=== PATIENT | female | born 1930 | race Caucasian/White ===

== ENCOUNTER 2018-06-06 17:10 | Observation (INO) ==
[2018-06-06] MEDS ORDERED: Ipratropium/Albuterol Neb 3 ML IH ONE (17:44)
[2018-06-06] MEDS ORDERED: predniSONE 20 MG TABLET PO ONE (17:44)
--- NOTE | 2018-06-06 17:47 | Emergency Department Note ---
Disposition Clinical Impression: Elevated blood pressure reading, Elevated brain natriuretic peptide (BNP) level Chronic kidney disease Qualifiers: Chronic kidney disease stage: unspecified stage Qualified Code(s): N18.9 - Chronic kidney disease, unspecified Dyspnea Qualifiers: Dyspnea type: unspecified Qualified Code(s): R06.00 - Dyspnea, unspecified Disposition: Admitted As Inpatient Condition: Fair Time of Disposition: 19:46 SOB HPI - General Chief Complaint: ED Shortness of Breath/Dyspnea Stated Complaint: MORTEZA Time Seen by Provider: 06/06/18 17:22 Source: patient, family Mode of arrival: ambulatory Limitations: no limitations Nursing Notes Reviewed: Yes Vital Signs Reviewed: Yes - History of Present Illness 87 year old female with history of COPD presents for evaluation of shortness of breath. Patient states that she was seen her primary care doctor 5 days ago and was placed on amoxicillin as well as redness around. Patient also states she has been using her albuterol inhaler every 4 hours. Patient notes a nonproductive cough which occasionally produces some yellow sputum. Denies any fevers. Denies any chest pain. Denies any history of any oxygen requirement. Denies any nausea vomiting or abdominal pain. Denies history of CAD. States she does have a history of kidney disease but does follow with nephrology. Patient states she has been taking 20 mg of prednisone daily. Denies history of URI symptoms, nasal congestion or rhinorrhea. - Related Data Allergies Allergy/AdvReac Type Severity Reaction Status Date / Time levofloxacin [From Levaquin] Allergy Redness of Verified 06/06/18 17:44 Skin All systems ED: reviewed and negative except as stated. Constitutional: Denies: fever Cardiovascular: Denies: chest pain Respiratory: Reports: cough, dyspnea, sputum production Gastrointestinal: Denies: abdominal pain, nausea, vomiting Past Medical History - Past Medical History Source: patient Medical history: Reports: COPD, hyperlipidemia, hypertension, renal disease Psychiatric history: Reports: no psych history DOCTOR ASSISTANT history: Reports: no DOCTOR ASSISTANT history - Social History Smoking Status: Never smoker Smokeless Tobacco Status: No Alcohol use: Reports: none Drug use: Reports: none Physical Exam - General Limitations: no limitations General appearance: alert, in no apparent distress - Head Head exam: atraumatic, normocephalic, normal inspection - Eye Eye exam: Present: normal appearance, PERRL, EOMI - ENT ENT exam: normal exam, normal oropharynx, mucous membranes moist - Neck Neck exam: Present: normal inspection, trachea midline - Chest Chest inspection: Present: normal inspection, symmetric chest wall rise - Respiratory Respiratory exam: Present: normal lung sounds bilaterally, prolonged expiratory phase. Absent: respiratory distress - Cardiovascular Cardiovascular exam: Present: regular rate, normal rhythm. Absent: systolic murmur - Abdominal Exam Abdominal exam: Present: soft, Non-Tender - Extremities Exam Extremities exam: Present: normal inspection. Absent: pedal edema - Back Exam Back exam: Present: normal inspection - Neurological Exam Neurological exam: Present: alert, oriented X3, CN II-XII intact - Skin Skin exam: Present: warm, dry, intact, normal color Course Course Narrative: Patient seen and examined. Patient's in no acute distress. We will get EKG, basic labs chest x-ray nebs and steroids. Disposition pending. - Reevaluation(s) Reevaluation #1: Patient states she is feeling better. Awaiting labs. Time: 18:46 Reevaluation #2: Patient was able to ambulate without difficulty. Patient is ambulatory O2 was 93%. However, the patient labs show a mild elevation of BNP. Patient possibly is having early signs of heart failure. Patient states that she would like to be admitted. Time: 19:11 Vital Signs Temperature 97.7 F 06/06/18 17:15 Pulse Rate 70 06/06/18 17:15 Respiratory Rate 22 06/06/18 17:15 Blood Pressure 188/71 06/06/18 17:15 O2 Sat by Pulse Oximetry 95 06/06/18 17:15 Temperature 97.7 F 06/06/18 17:38 Pulse Rate 82 06/06/18 19:05 Respiratory Rate 18 06/06/18 18:06 Blood Pressure 185/83 06/06/18 17:38 O2 Sat by Pulse Oximetry 99 06/06/18 18:07 Oxygen Delivery Oxygen Delivery Room Air Shortness of Breath/Dyspnea - [facility] Narrative Medical decision making narrative: Patient presents for concerns of dyspnea. Initially the patient states she has a history of COPD and was treated with nebs and steroids and antibiotics proximally 5 days. Notes it dyspnea has not improved. Denies any fevers. Patient has had a productive intermittent sputum. Patient's workup in the ED shows an unremarkable chest x-ray. Patient's kidney function is at baseline. Patient does have some mild elevation of the BNP which is higher than what it has been in the past. Patient appeared to been optimized for COPD however is possibly early heart failure. Patient was able to ambulate without any difficulty but did drop her oxygen saturation. Patient signs symptoms are not consistent with a PE or dissection. Patient would best be evaluated with continued cardiopulmonary monitoring with an echo. To evaluate for any signs of heart failure. - Lab Data Lab results reviewed: Yes I reviewed the patient's lab results. Result diagrams: 06/06/18 18:05 06/06/18 18:05 Lab Results 06/06/18 06/06/18 06/06/18 Range/Units 18:05 18:05 18:05 WBC 12.8 H (4.3-11.1) K/mcL RBC 4.81 (3.82-4.97) M/mcL Hgb 12.8 (11.5-15.4) g/dL Hct 40.2 (35.3-44.9) % MCV 83.6 (83.0-100.0) fL MCH 26.6 L (28.0-33.3) pg MCHC 31.8 (31.6-35.5) g/dL RDW 14.1 (11.5-14.5) % Plt Count 181 (140-400) K/mcL MPV 12.1 (9.4-12.4) fL Immature Gran % 0.7 (0-4) % Seg Neutrophils % 61.9 % Lymphocytes % 23.8 % Monocytes % 11.7 % Eosinophils % 1.7 % Basophils % 0.2 % Neutrophils # 7.9 (1.6-8.9) K/mcL Lymphocytes # 3.0 (0.6-4.6) K/mcL Monocytes # 1.5 H (0.0-1.3) K/mcL Eosinophils # 0.2 (0.0-0.6) K/mcL Basophils # 0.0 (0.0-0.2) K/mcL Sodium 140 (136-145) mEq/L Potassium 3.7 (3.5-5.1) mEq/L Chloride 102 (98-107) mEq/L Carbon Dioxide 30 H (23-29) mEq/L BUN 23 (8-23) mg/dL Creatinine 1.46 H (0.60-1.20) mg/dL Est GFR ( Amer) 41 L (> 60) Est GFR (Non-Af Amer) 34 L (> 60) BUN/Creatinine Ratio 16 (6-26) Glucose 139 H (70-105) mg/dL Calculated Osmolality 296 (280-300) Calcium 9.1 (8.6-10.3) mg/dL Troponin I < 0.03 (< 0.04) ng/mL B-Natriuretic Peptide 100 H (Less than 100) pg/mL - Radiology Data Radiology results reviewed: Yes I reviewed the patient's radiology results. Chest X-Ray 06/06/18 17:44 IMPRESSION: Senescent pulmonary changes. No definite acute pulmonary disease. Calcific atherosclerotic disease aorta. D/ / Austin Vance / Austin Vance Interpreting Provider: Austin Vance - EKG Data EKG attestation: Yes I reviewed and interpreted this EKG. EKG shows normal: Reports: sinus rhythm Rate: Reports: normal Rhythm: Reports: NSR Fenton/QRS: Reports: left axis deviation T wave inversions noted in: Reports: aVR, v1 QRS morphology: Reports: poor R-wave progression Interpretation: Reports: no acute changes, unchanged when compared to prior tracing (date) S.B.AAubrey - S.[email or web address].AAubrey Situation: Demographics Background: Presenting Complaint Assessment: Vital Signs, Course and respsone to treatment, Patient/Family Expectation Recommendation: Barrier(s) to disposition, Recommendation based on pending studies, treatments, or consults S.B.A.RSeymour Report Given to: Dr. Toro SSeymourBSeymourAAubrey Repor Time: 19:53 Attestation Statement - Attestation Attestation: I examined this patient and my medical decision-making was reviewed with the Resident Physician. I agree with the documented findings, disposition and treatment plan as described except to the extent set forth below. Findings consistent with COPD versus CHF. She did receive bronchodilators, steroids, will be admitted for further management. BNP is slightly more elevated than baseline and this could be a contributing factor to her underlying respiratory status. The patient will be admitted for further management.
[2018-06-06 18:15] LABS: Basophils % 0.2 %; Eosinophils # 0.2 K/mcL (0.0-0.6); Eosinophils % 1.7 %; Hematocrit 40.2 % (35.3-44.9); Hemoglobin 12.8 g/dL (11.5-15.4); Immature Granulocytes % 0.7 % (0-4); Lymphocytes % 23.8 %; Mean Corpuscular HGB Conc 31.8 g/dL (31.6-35.5); Mean Corpuscular Hemoglobin 26.6 pg (28.0-33.3); Mean Corpuscular Volume 83.6 fL (83.0-100.0); Mean Platelet Volume 12.1 fL (9.4-12.4); Monocytes # 1.5 K/mcL (0.0-1.3); Monocytes % 11.7 %; Neutrophils # 7.9 K/mcL (1.6-8.9); Platelet Count 181 K/mcL (140-400); Red Blood Count 4.81 M/mcL (3.82-4.97); Red Cell Distribution Width 14.1 % (11.5-14.5); Segmented Neutrophils % 61.9 %
[2018-06-06 18:37] LABS: BUN/Creatinine Ratio 16 (6-26); Blood Urea Nitrogen 23 mg/dL (8-23); Calcium 9.1 mg/dL (8.6-10.3); Carbon Dioxide 30 mEq/L (23-29); Chloride 102 mEq/L (98-107); Glucose 139 mg/dL (70-105); Osmolality,Calculated 296 (280-300); Potassium 3.7 mEq/L (3.5-5.1); Sodium 140 mEq/L (136-145); Troponin I < 0.03 ng/mL (< 0.04); eGFR For Non-African Americans 34 (> 60)
[2018-06-06] MEDS ORDERED: Aspirin 325 MG TABLET PO ONE (19:34)
[2018-06-07] MEDS ORDERED: Albuterol 2.5 MG/3 ML NEBULIZER IH PRN (00:12)
[2018-06-07] MEDS: Ipratropium/Albuterol Neb 3 ML IH SCH ×6 (00:22→19:56)
[2018-06-07] MEDS: Furosemide 20 MG TABLET PO SCH ×2 (00:35→09:00)
[2018-06-07] MEDS ORDERED: Naloxone 0.4 MG/ML INJ IVP PRN (04:53)
[2018-06-07] MEDS ORDERED: Azithromycin 250 MG TABLET PO ONE (04:55)
--- NOTE | 2018-06-07 05:05 | Internal Med History&Physical ---
<Williams Mixon - Last Filed: 06/07/18 04:59> Date of Encounter: 06/07/18 Time of Encounter: 04:59 Internal Medicine - H&P: HPI Chief complaint: Cough Admitted From: Emergency Dept Plans for Post Hospital Care: Home History of present illness: Ms. Moreno is a 87 year old female with a past medical history of COPD, hyperlipidemia, hypertension, chronic kidney disease. She presented to the emergency department last night for 5 days of worsening cough and some associated shortness of breath. She states she normally has 1-2 COPD exacerbations a year that are controlled with a course of amoxicillin and prednisone from her PCP. She states she reported to her PCP on Friday and was given a course of amoxicillin and prednisone but her symptoms did not improve. She states her cough is mostly nonproductive although she has occasionally produce some yellow sputum. She denies fever or chills, cardiac chest pain. She does report pleuritic type chest pain. On presentation to the ED blood pressure is elevated with systolic into the 200s but vital signs are otherwise normal. Patient saturating in the 90s on room air. Labs significant for white count minimally elevated at 12.8, creatinine elevated at 1.46 which appears to be her baseline, bicarbonate elevated to 30, BNP elevated to 100. EKG revealed normal sinus rhythm with some T-wave inversions that are unchanged from previous EKGs. Chest x-ray revealed diffuse chronic parenchymal changes but no acute consolidation or evidence of pneumonia. Patient was given DuoNeb times, prednisone, Lasix in the emergency department. On my interview patient tells me she has had COPD since the late . She states that she never smoked but her family all did and the transmission mechanic who diagnosed her with COPD stated it was likely due to secondhand smoke exposure. She denies exposure to anything in the workplace or home other than secondhand smoke. Family history is significant for emphysema in her father but no other family members had lung disease. Social history negative for smoking, alcohol, drugs. Past Med Surg Social Fam HX - Past Medical History Medical history: COPD, hyperlipidemia, hypertension, renal disease Psychiatric history: no psych history - Past Surgical History Surgical History: cholecystectomy - Social History Smoking Status: Never smoker Smokeless Tobacco Status: No Alcohol use: none Drug use: none - Family History Father Hx Family Respiratory Disorders: Yes (COPD) Internal Medicine - H&P: Meds Aspirin 81 mg PO DAILY 10/20/18 [History] Atenolol [Tenormin] 50 mg PO DAILY 06/06/18 [History] Fluticasone/Salmeterol [Advair 500-50 Diskus] 1 each IH BID 06/06/18 [History] Furosemide [Lasix] 20 mg PO DAILY 06/06/18 [History] Losartan Potassium [Cozaar] 100 mg PO DAILY 06/06/18 [History] Simvastatin [Zocor] 40 mg PO DAILY 06/06/18 [History] amLODIPine [Norvasc] 2.5 mg PO DAILY 06/06/18 [History] Allergy/AdvReac Type Severity Reaction Status Date / Time levofloxacin [From [facility]] Allergy Redness of Verified 06/06/18 17:44 Skin All Systems PM: A 10-system review of systems was performed and is negative for pertinent findings except as documented above in the HPI. - Constitutional Vitals: Temp Pulse Resp BP Pulse Ox 97.9 F 73 16 176/81 94 06/07/18 03:00 06/07/18 03:00 06/07/18 03:00 06/07/18 03:00 06/07/18 03:00 Exam: Patient in no acute distress Alert and oriented 3 Affect normal Cranial nerves II through XII intact Pupils equal and reactive to light Neck supple with minor submandibular lymphadenopathy present, no JVD Heart in regular rate and rhythm without murmur or gallop present Lungs exhibited diffuse scattered rhonchi more consolidated on the right and some minor crackles in the right lower lobe Lung exam negative for wheezing, accessory muscle use, regions of absent breath sounds Abdomen soft and nontender with normal bowel sounds present Bilateral lower extremities negative for edema Skin warm and dry Internal Med - H&P Results - Labs CBC & Chem 7: 06/06/18 18:05 06/06/18 18:05 Labs: Short CBC 06/06/18 Range/Units 18:05 WBC 12.8 H (4.3-11.1) K/mcL Hgb 12.8 (11.5-15.4) g/dL Hct 40.2 (35.3-44.9) % Plt Count 181 (140-400) K/mcL Neutrophils # 7.9 (1.6-8.9) K/mcL BMP 06/06/18 18:05 Sodium 140 Potassium 3.7 Chloride 102 Carbon Dioxide 30 H BUN 23 Creatinine 1.46 H Glucose 139 H Calcium 9.1 Cardiac Enzymes 06/06/18 Range/Units 18:05 Troponin I < 0.03 (< 0.04) ng/mL - Impressions ITS Impressions Chest X-Ray 06/06/18 17:44 IMPRESSION: Senescent pulmonary changes. No definite acute pulmonary disease. Calcific atherosclerotic disease aorta. D/ / Austin Vance / Austin Vance Interpreting Provider: Austin Vance - Assessment and plan (1) Bronchitis Current Visit: Yes Status: Acute Assessment and plan: Patient presented with the chief complaint of persistent cough with associated pleuritic pain and minimal shortness of breath Patient states she has a history of COPD exacerbations and acute bronchitis, she states this feels more like bronchitis She states her main complaint is cough without expectoration and pleuritic chest pain as opposed to shortness of breath She was trialed on an outpatient regimen of amoxicillin and prednisone for 5 days White count minimally elevated at 12.8 - labs, vitals, and clinical disposition do not otherwise indicate sepsis Labs significant for mildly elevated BNP of 100, oxygen saturation in the mid 90s on room air Chest x-ray negative for acute process or consolidation indicative of pneumonia Physical exam significant for appreciable rhonchi and minimal crackles, no wheeze Differential includes bronchitis, COPD exacerbation, new onset heart failure This is most likely acute bronchitis secondary to viral or atypical bacterial etiology COPD exacerbation less likely due to no wheeze, nonresponsive to steroids, no hypoxia Heart failure less likely due to minimal BNP, no JVD, no swelling, no orthopnea, no gallop, no significant chest x-ray findings Plan Continuous pulse oximetry Scheduled DuoNeb's and albuterol nebs as needed Azithromycin by mouth 500 mg loading dose followed by 250 mg daily Robitussin-DM for cough control and expectoration assistance Echocardiogram in the morning to rule out heart failure etiology We will hold steroids for now as COPD exacerbation is less likely and patient was unresponsive to steroids previously (2) COPD (chronic obstructive pulmonary disease) Current Visit: No Status: Chronic Assessment and plan: As seen above Qualifiers: COPD type: unspecified COPD Qualified Code(s): J44.9 - Chronic obstructive pulmonary disease, unspecified (3) Hypertension Current Visit: Yes Status: Chronic Assessment and plan: Patient presented with elevated blood pressure, systolic in the 200s Blood pressure currently in the 170s systolic, patient stable She states her blood pressure will normally be around 120/80 We will resume home blood pressure medications with hydralazine as needed Qualifiers: Hypertension type: unspecified Qualified Code(s): I10 - Essential (primary) hypertension (4) Chronic kidney disease Current Visit: No Status: Chronic Assessment and plan: Patient has history of chronic kidney disease She follows with nephrology who recommended hydration Creatinine at admission 1.46 which appears to be her baseline according to previous values We will continue to monitor and attempt to avoid nephrotoxins and renally dose medications Qualifiers: Chronic kidney disease stage: unspecified stage Qualified Code(s): N18.9 - Chronic kidney disease, unspecified (5) Hyperlipidemia Current Visit: No Status: Chronic Assessment and plan: Continue home simvastatin Qualifiers: Hyperlipidemia type: unspecified Qualified Code(s): E78.5 - Hyperlipidemia, unspecified (6) DVT prophylaxis Current Visit: Yes Status: Acute Assessment and plan: Patient instructed to ambulate 3 times a day for DVT prophylaxis This will also aid in assisting sputum expectoration - Time Spent With Patient Total time spent is greater than 50% in coordination of care (as documented) at patient's floor/unit and/or counseling patient: <Agusto Toro - Last Filed: 06/07/18 06:44> Time of Encounter: 05:15 - Constitutional Constitutional: no chills, no fever(s) - EENT Eyes: no blurry vision, no change in vision Ears: no ear pain Nose, mouth and throat: nasal congestion, nasal discharge, no sore throat - Cardiovascular Cardiovascular ROS IM: dyspnea, no chest pain, no orthopnea, no syncope - Respiratory Respiratory: cough, dyspnea, wheezing, chest congestion, change in phlegm color, no hemoptysis - Gastrointestinal Gastrointestinal: no abdominal pain, no diarrhea, no hematemesis, no hematochezia, no melena, no nausea, no vomiting - Genitourinary Genitourinary: no dysuria, no flank pain, no hematuria - Musculoskeletal Musculoskeletal ROS IM: no arthralgias, no back pain - Integumentary Integumentary IM: no rash, no jaundice - Neurological Neurological ROS: no dizziness, no focal weakness, no frequent falls, no headache(s) - Psychiatric Psychiatric: no anxiety, no depression - Endocrine Endocrine IM: no polydipsia, no polyuria - Allergic/Immunologic Allergic/Immunologic: no GI upset with certain foods - Constitutional Vitals: Temp Pulse Resp BP Pulse Ox 97.9 F 73 16 176/81 94 06/07/18 03:00 06/07/18 03:00 06/07/18 03:00 06/07/18 03:00 06/07/18 03:00 General appearance: Present: cooperative, A&O X 3, pleasant, no acute distress - Eye Eye exam: Present: PERRL. Absent: scleral icterus - Neck Neck exam general surgery: Present: supple - Respiratory Respiratory exam: Present: rhonchi. Absent: chest wall tenderness, prolonged expiratory phase, rales, respiratory distress, wheezes Additional comments: + cough paroxysms - Cardiovascular Cardiovascular exam: Present: RRR, +S1, +S2. Absent: diastolic murmur, systolic murmur - GI/Abdominal GI/Abdominal exam: Present: normal bowel sounds, soft. Absent: hepatomegaly, mass, splenomegaly, tenderness - Extremities Exam Extremities exam: Present: warm, radial pulses palpable and symmetrical. Absent: calf tenderness, mottling, pedal edema - Back Exam Back exam: Absent: CVA tenderness (L), CVA tenderness (R) - Neurological Exam Neurological exam: Present: alert, CN II-XII intact, oriented X3, no focal deficits - Skin Skin exam: Present: dry, warm Internal Med - H&P Results - Labs CBC & Chem 7: 06/06/18 18:05 06/06/18 18:05 Labs: Short CBC 06/06/18 Range/Units 18:05 WBC 12.8 H (4.3-11.1) K/mcL Hgb 12.8 (11.5-15.4) g/dL Hct 40.2 (35.3-44.9) % Plt Count 181 (140-400) K/mcL Neutrophils # 7.9 (1.6-8.9) K/mcL BMP 06/06/18 18:05 Sodium 140 Potassium 3.7 Chloride 102 Carbon Dioxide 30 H BUN 23 Creatinine 1.46 H Glucose 139 H Calcium 9.1 Cardiac Enzymes 06/06/18 Range/Units 18:05 Troponin I < 0.03 (< 0.04) ng/mL - Impressions ITS Impressions Chest X-Ray 06/06/18 17:44 IMPRESSION: Senescent pulmonary changes. No definite acute pulmonary disease. Calcific atherosclerotic disease aorta. D/ / Austin Vance / Austin Vance Interpreting Provider: Austin Vance - Assessment and plan (1) Chronic kidney disease Current Visit: No Status: Chronic Qualifiers: Chronic kidney disease stage: unspecified stage Qualified Code(s): N18.9 - Chronic kidney disease, unspecified (2) Bronchitis Current Visit: Yes Status: Acute (3) Hypertension Current Visit: Yes Status: Chronic Qualifiers: Hypertension type: unspecified Qualified Code(s): I10 - Essential (primary) hypertension (4) COPD (chronic obstructive pulmonary disease) Current Visit: No Status: Chronic Qualifiers: COPD type: unspecified COPD Qualified Code(s): J44.9 - Chronic obstructive pulmonary disease, unspecified (5) Hyperlipidemia Current Visit: No Status: Chronic Qualifiers: Hyperlipidemia type: unspecified Qualified Code(s): E78.5 - Hyperlipidemia, unspecified (6) DVT prophylaxis Current Visit: Yes Status: Acute - Time Spent With Patient Total time spent is greater than 50% in coordination of care (as documented) at patient's floor/unit and/or counseling patient: - Attending Attestation I discussed the patient [place], past medical history, review of systems, lab data, and exam findings with Dr. Mixon. I then saw and examined patient independently. She is on room air, afebrile, and in no distress. She feels much better than her initial presentation. She reiterates that she failed outpatient treatment. She is not wheezing whatsoever on exam. She does have a frequent cough with some paroxysms of coughing. She has minimal productive sputum. She denies any fevers or chills. Based upon her history and exam, I agree she likely has bronchitis and that it is most likely viral. However, for the remote possibility of bacterial infection, we will place her on Zithromax for better atypical coverage. She has been on amoxicillin without relief. I do not feel she needs steroids at this time as she has no wheezing whatsoever. We will treat her with aerosols and antibiotics as above. I anticipate she will be discharged soon with close follow-up. Other than my comments above and noted exam findings, I agree with Dr. Mixon's assessment and plan.
[2018-06-07] MEDS: Acetaminophen 325 MG TABLET PO PRN ×2 (05:13→20:40)
[2018-06-07 08:07] LABS: Basophils % 0.2 %; Hematocrit 41.5 % (35.3-44.9); Hemoglobin 13.7 g/dL (11.5-15.4); Lymphocytes # 1.1 K/mcL (0.6-4.6); Lymphocytes % 12.4 %; Mean Corpuscular Hemoglobin 27.1 pg (28.0-33.3); Mean Platelet Volume 12.6 fL (9.4-12.4); Monocytes # 0.5 K/mcL (0.0-1.3); Neutrophils # 7.3 K/mcL (1.6-8.9); Platelet Count 194 K/mcL (140-400); Red Blood Count 5.06 M/mcL (3.82-4.97); Red Cell Distribution Width 14.3 % (11.5-14.5); Segmented Neutrophils % 81.4 %
[2018-06-07 08:40] LABS: Calcium 9.3 mg/dL (8.6-10.3); Potassium 3.9 mEq/L (3.5-5.1)
--- NOTE | 2018-06-07 08:56 | Internal Med Progress Note ---
Hospitalist Progress Note - Encounter Date of Encounter: 06/07/18 Time of Encounter: 08:53 - Subjective Interval History: No acute changes overnight, in no distress at this time. Continued to report some mild exertional dyspnea as well as cough. - Exam Vitals: Temp Pulse Resp BP Pulse Ox 97.8 F 78 16 162/74 96 06/07/18 07:18 06/07/18 07:18 06/07/18 07:46 06/07/18 07:18 06/07/18 07:46 Exam: PHYSICAL EXAMINATION: GENERAL: The patient is an elderly female in no apparent distress, she is alert and oriented x3. HEENT: Head is normocephalic and atraumatic. Extraocular muscles are intact. Pupils are equal, round, and reactive to light and accommodation. Nares appeared normal. Mouth is well hydrated and without lesions. Mucous membranes are moist. Posterior pharynx clear of any exudate or lesions. NECK: Supple. No carotid bruits. No lymphadenopathy or thyromegaly. LUNGS: Left lower lobe diminished, LML, NU clear/diminished, A&P, right lung clear/diminished A&P. No accessory muscle usage or prolonged expiratory phase noted HEART: Regular rate and rhythm, S1, S2 without murmur. ABDOMEN: Soft, nontender, and nondistended. Positive bowel sounds. No hepatosplenomegaly was noted. EXTREMITIES: Without any cyanosis, clubbing, rash, lesions or edema. NEUROLOGIC: Cranial nerves II through XII are grossly intact. - Assessment and Plan (1) Bronchitis Current Visit: Yes Status: Acute Assessment and Plan: Presented with mild shortness of breath, productive cough and pleuritic chest pain with inspiration Recently treated for bronchitis by PCP with Augmentin and steroids Has a history of COPD; does not appear to be COPD exacerbation without shortness of breath or wheezing, nonresponsive to steroids, without hypoxia; holding steroids for now Symptoms ongoing greater than 5 days, consider bronchitis viral versus bacterial BNP minimal, no JVD, no swelling, no orthopnea, CXR findings without acute pulmonary process, does not appear to be heart failure Continue aerosols as needed Continue azithromycin Symptomatically management with Robitussin-DM Incentive spirometry Ambulate frequently Continuous pulse ox TTE pending (2) Chronic kidney disease Current Visit: No Status: Chronic Assessment and Plan: CKD III Follows with [facility] Serum creatinine and GFR around patient's baseline Continue to closely monitor Avoid nephrotoxins (3) Hypertension Current Visit: Yes Status: Chronic Assessment and Plan: History of hypertension, the patient's blood pressure this morning is 162/74 Continue anti-HTN medications, continue as needed hydralazine IV If hypertension persists consider increasing Norvasc to 5 mg by mouth daily Patient states her normal BP is around 120/80 (4) COPD (chronic obstructive pulmonary disease) Current Visit: No Status: Chronic Assessment and Plan: As above (5) Hyperlipidemia Current Visit: No Status: Chronic Assessment and Plan: History of hyperlipidemia Continue simvastatin (6) DVT prophylaxis Current Visit: Yes Status: Acute Assessment and Plan: SC heparin and frequent ambulation - Time Spent with Patient Total time spent is greater than 50% in coordination of care (as documented) at patient's floor/unit and/or counseling patient: less than 15 minutes Plan of Care Discussed with: patient Internal Medicine: Result - Labs CBC & Chem 7: 06/07/18 05:55 06/07/18 05:55 Labs: Short CBC 06/06/18 06/07/18 Range/Units 18:05 05:55 WBC 12.8 H 9.0 (4.3-11.1) K/mcL Hgb 12.8 13.7 (11.5-15.4) g/dL Hct 40.2 41.5 (35.3-44.9) % Plt Count 181 194 (140-400) K/mcL Neutrophils # 7.9 7.3 (1.6-8.9) K/mcL BMP 06/06/18 06/07/18 18:05 05:55 Sodium 140 137 Potassium 3.7 3.9 Chloride 102 100 Carbon Dioxide 30 H 26 BUN 23 23 Creatinine 1.46 H 1.27 H Glucose 139 H 204 H Calcium 9.1 9.3 Cardiac Enzymes 06/06/18 Range/Units 18:05 Troponin I < 0.03 (< 0.04) ng/mL - Impressions Impressions Chest X-Ray 06/06/18 17:44 IMPRESSION: Senescent pulmonary changes. No definite acute pulmonary disease. Calcific atherosclerotic disease aorta. D/ / Austin Vance / Austin Vance Interpreting Provider: Austin Vance Consult Discharge Plan - Plan Referrals: Melany Shafer, BRICK [facility]OL[facility] [Primary Care Provider] - (2) Chronic kidney disease Qualifiers: Chronic kidney disease stage: unspecified stage Qualified Code(s): N18.9 - Chronic kidney disease, unspecified (3) Hypertension Qualifiers: Hypertension type: unspecified Qualified Code(s): I10 - Essential (primary) hypertension (4) COPD (chronic obstructive pulmonary disease) Qualifiers: COPD type: unspecified COPD Qualified Code(s): J44.9 - Chronic obstructive pulmonary disease, unspecified (5) Hyperlipidemia Qualifiers: Hyperlipidemia type: unspecified Qualified Code(s): E78.5 - Hyperlipidemia, unspecified
[2018-06-07] MEDS: amLODIPine 5 MG TABLET PO SCH (09:00)
[2018-06-07] MEDS: Aspirin 81 MG TAB.CHEW PO SCH (09:01)
[2018-06-07] MEDS: *HR* Heparin 5,000 UNIT/ML VIAL SQ SCH (18:04)
[2018-06-08] MEDS: Ipratropium/Albuterol Neb 3 ML IH SCH ×7 (00:32→23:36)
[2018-06-08] MEDS: *HR* Heparin 5,000 UNIT/ML VIAL SQ SCH ×2 (05:57→17:28)
[2018-06-08] MEDS: amLODIPine 5 MG TABLET PO SCH (08:10)
[2018-06-08] MEDS: Azithromycin 250 MG TABLET PO SCH (08:11)
[2018-06-08] MEDS: Furosemide 20 MG TABLET PO SCH (08:11)
[2018-06-08] MEDS: Aspirin 81 MG TAB.CHEW PO SCH (08:11)
--- NOTE | 2018-06-08 09:47 | Internal Med Progress Note ---
Hospitalist Progress Note - Encounter Date of Encounter: 06/08/18 Time of Encounter: 09:43 - Subjective Interval History: Patient reporting worsening dyspnea and increased cough overnight. Reporting excess fatigue as well as weakness and shortness of breath with activity - Exam Vitals: Temp Pulse Resp BP Pulse Ox 98.0 F 86 19 172/80 99 06/08/18 07:11 06/08/18 07:11 06/08/18 07:31 06/08/18 07:11 06/08/18 07:31 Exam: PHYSICAL EXAMINATION: GENERAL: The patient is an elderly female in no apparent distress, she is alert and oriented x3. HEENT: Head is normocephalic and atraumatic. Extraocular muscles are intact. Pupils are equal, round, and reactive to light and accommodation. Nares appeared normal. Mouth is well hydrated and without lesions. Mucous membranes are moist. Posterior pharynx clear of any exudate or lesions. NECK: Supple. No carotid bruits. No lymphadenopathy or thyromegaly. LUNGS: Left lower lobe diminished, LML, NU I/E wheezes A&P, right lung I/E wheezes A&P. Prolonged expiratory phase, mild conversational dyspnea HEART: Regular rate and rhythm, S1, S2 without murmur. ABDOMEN: Soft, nontender, and nondistended. Positive bowel sounds. No hepatosplenomegaly was noted. EXTREMITIES: Without any cyanosis, clubbing, rash, lesions or edema. NEUROLOGIC: Cranial nerves II through XII are grossly intact. - Assessment and Plan (1) Bronchitis Current Visit: Yes Status: Acute Assessment and Plan: Presented with mild shortness of breath, productive cough and pleuritic chest pain with inspiration Recently treated for bronchitis by PCP with Augmentin and steroids Has a history of COPD; does not appear to be COPD exacerbation without shortness of breath or wheezing, nonresponsive to steroids, without hypoxia; holding st eroids for now Symptoms ongoing greater than 5 days, consider bronchitis viral versus bacterial BNP minimal, no JVD, no swelling, no orthopnea, CXR findings without acute pulmonary process, does not appear to be heart failure Continue aerosols as needed Continue azithromycin Incentive spirometry Ambulate frequently Continuous pulse ox TTE pending 06/08--clinical picture worsening overnight, patient reporting shortness of breath, dyspnea with exertion and continued coarse cough. Yesterday lungs were clear/diminished bilaterally with diminished left lower lobe. However, today she has coarse I/E wheezing and is now 2 LNC respiratory support. We will start the patient on Tessalon Perles for cough, IV steroids and check strep pneumo/Legionella urine antigens as well as obtain flu swab. Otherwise continue all other orders as stated above (2) Chronic kidney disease Current Visit: No Status: Chronic Assessment and Plan: CKD III Follows with [facility] Serum creatinine and GFR around patient's baseline Continue to closely monitor Avoid nephrotoxins (3) Hypertension Current Visit: Yes Status: Chronic Assessment and Plan: History of hypertension Hypertensive episodes this morning Consider increasing Norvasc if HTN persists Continue anti-HTN medications, continue as needed hydralazine IV Patient states her normal BP is around 120/80 (4) COPD (chronic obstructive pulmonary disease) Current Visit: No Status: Chronic Assessment and Plan: Respiratory status declined overnight with exertional dyspnea, cough and shortness of breath Dyspneic on 2 L nasal cannula, does not have chronic respiratory failure and does not wear oxygen at home Appears to have an acute exacerbation of COPD in the setting of bronchitis, viral versus bacterial Add IV steroids to patient's medication regimen Continue azithromycin for anti-inflammatory properties Continue aerosols Respiratory support O2 PRN maintain SPO2 > 92% Monitor continuously on pulse ox (5) Hyperlipidemia Current Visit: No Status: Chronic Assessment and Plan: History of hyperlipidemia Continue simvastatin (6) DVT prophylaxis Current Visit: Yes Status: Acute Assessment and Plan: SC heparin and frequent ambulation - Time Spent with Patient Total time spent is greater than 50% in coordination of care (as documented) at patient's floor/unit and/or counseling patient: Internal Medicine: Result - Labs CBC & Chem 7: 06/07/18 05:55 06/07/18 05:55 - Impressions Impressions Echocardiogram 06/07/18 05:22 Impressions: LVEF 60-65%. Mild left ventricular diastolic dysfunction. Normal right ventricular structure and function. Mild-moderate aortic regurgitation. Mild mitral regurgitation. Mild tricuspid regurgitation. Consult Discharge Plan - Plan Referrals: Melany Shafer, DE[facility] [Primary Care Provider] - (2) Chronic kidney disease Qualifiers: Chronic kidney disease stage: unspecified stage Qualified Code(s): N18.9 - Chronic kidney disease, unspecified (3) Hypertension Qualifiers: Hypertension type: unspecified Qualified Code(s): I10 - Essential (primary) hypertension (4) COPD (chronic obstructive pulmonary disease) Qualifiers: COPD type: unspecified COPD Qualified Code(s): J44.9 - Chronic obstructive pulmonary disease, unspecified (5) Hyperlipidemia Qualifiers: Hyperlipidemia type: unspecified Qualified Code(s): E78.5 - Hyperlipidemia, unspecified
[2018-06-08] MEDS: Benzonatate 100 MG CAPSULE PO PRN ×2 (11:45→21:21)
[2018-06-08] MEDS: MethylPREDNISolone 40 MG/ML VIAL IVP SCH (17:28)
[2018-06-09] MEDS: Ipratropium/Albuterol Neb 3 ML IH SCH ×3 (03:43→11:38)
[2018-06-09 05:16] LABS: Basophils % 0.2 %; Hematocrit 44.4 % (35.3-44.9); Hemoglobin 14.1 g/dL (11.5-15.4); Immature Granulocytes % 1.1 % (0-4); Lymphocytes # 1.1 K/mcL (0.6-4.6); Mean Corpuscular HGB Conc 31.8 g/dL (31.6-35.5); Mean Corpuscular Hemoglobin 26.3 pg (28.0-33.3); Mean Corpuscular Volume 82.8 fL (83.0-100.0); Mean Platelet Volume 12.6 fL (9.4-12.4); Monocytes # 0.4 K/mcL (0.0-1.3); Monocytes % 3.8 %; Neutrophils # 9.7 K/mcL (1.6-8.9); Platelet Count 229 K/mcL (140-400); Red Blood Count 5.36 M/mcL (3.82-4.97); Red Cell Distribution Width 14.6 % (11.5-14.5); Segmented Neutrophils % 84.9 %
[2018-06-09] MEDS: MethylPREDNISolone 40 MG/ML VIAL IVP SCH (05:17)
[2018-06-09] MEDS: *HR* Heparin 5,000 UNIT/ML VIAL SQ SCH (05:17)
[2018-06-09] MEDS: Benzonatate 100 MG CAPSULE PO PRN (05:27)
[2018-06-09 05:31] LABS: Calcium 9.6 mg/dL (8.6-10.3); Potassium 4.2 mEq/L (3.5-5.1)
[2018-06-09] MEDS: Furosemide 20 MG TABLET PO SCH (07:46)
[2018-06-09] MEDS: Aspirin 81 MG TAB.CHEW PO SCH (07:46)
[2018-06-09] MEDS: Azithromycin 250 MG TABLET PO SCH (07:46)
[2018-06-09] MEDS: amLODIPine 5 MG TABLET PO SCH (07:47)
[2018-06-09 10:49] VITALS: BP 138/70
--- NOTE | 2018-06-09 13:12 | Discharge Summary ---
- NOTES TO OUTPATIENT PROVIDER Notes to Outpatient Provider: Cont wit Z pack, steroid taper Orders not resulted at time of discharge: Pending orders 06/10/18 04:00 Basic Metabolic Panel AM 0400 Complete Blood Count [HEME] AM 0400 06/11/18 04:00 Basic Metabolic Panel AM 0400 Complete Blood Count [HEME] AM 0400 Date of Encounter: 06/09/18 Time of Encounter: 13:09 - Discharge Diagnosis (1) Chronic kidney disease Priority: Primary Status: Chronic Qualifiers: Chronic kidney disease stage: unspecified stage Qualified Code(s): N18.9 - Chronic kidney disease, unspecified (2) Bronchitis Priority: Secondary Status: Acute (3) Hypertension Priority: Secondary Status: Chronic Qualifiers: Hypertension type: unspecified Qualified Code(s): I10 - Essential (primary) hypertension (4) COPD (chronic obstructive pulmonary disease) Priority: Secondary Status: Chronic Qualifiers: COPD type: unspecified COPD Qualified Code(s): J44.9 - Chronic obstructive pulmonary disease, unspecified (5) Hyperlipidemia Priority: Secondary Status: Chronic Qualifiers: Hyperlipidemia type: unspecified Qualified Code(s): E78.5 - Hyperlipidemia, unspecified Hospital course: Ms. Moreno is a 87 year old female past medical history of COPD hyperlipidemia hypertension chronic kidney disease. She presented MRSA primary after experiencing Prevacid 5 days of worsening cough and associated symptom of shortness of breath. She had been seen earlier this week by her PCP and was given a course of amoxicillin and prednisone how her symptoms did not improve. On presentation in the ER her oxygen saturation was 90 on room air she was given 2 L of oxygen which did improve. Labs are significant for white count minimally elevated at 12.8 and creatinine was elevated but appears to be around her baseline EKG was sinus rhythm unchanged from previous EKG chest x-ray with diffuse chronic parenchymal changes but no acute consolidation or evidence of pneumonia. She was given DuoNeb times prednisone Lasix in the emergency room. She was placed on azithromycin as well as steroids respiratory status improved and patient has been ambulating without any difficulty. She did complete 6 minute walk test but she did not qualify for any oxygen. Currently she is on room air satting approximately 94%. Cough has improved patient states that she feels well and she is ready for discharge. Advised patient to follow-up with primary care provider since this provider Chioma Frazier and can adjust medications accordingly. Patient will be discharged home with azithromycin as well as a steroid taper. Patient verbalizes understanding is ready for discharge - Time Spent with Patient Total time spent providing and/or coordinating discharge services: - Discharge Medications Prescriptions: Albuterol Neb [Proventil Neb] 2.5 mg IH Q4HR #30 inhsol Azithromycin [Zithromax] 250 mg PO DAILY #2 tablet Benzonatate [Tessalon] 100 mg PO TID PRN #15 capsule PRN Reason: Cough predniSONE [PredniSONE] 10 mg PO DAILY #20 tablet Home Medications: Aspirin 81 mg PO DAILY 06/06/18 [History] Atenolol [Tenormin] 50 mg PO DAILY 06/06/18 [History] Fluticasone/Salmeterol [Advair 500-50 Diskus] 1 puff IH BID 06/06/18 [History] Furosemide [Lasix] 20 mg PO DAILY 06/06/18 [History] Losartan Potassium [Cozaar] 100 mg PO DAILY 06/06/18 [History] Simvastatin [Zocor] 40 mg PO HS 06/06/18 [History] Amlodipine Besylate 2.5 mg PO HS 06/07/18 [History] Multivitamin [One Daily Multivitamin] 1 each PO DAILY 06/08/18 [History] Albuterol Neb [Proventil Neb] 2.5 mg IH Q4HR #30 inhsol 06/09/18 [Rx] Azithromycin [Zithromax] 250 mg PO DAILY #2 tablet 06/09/18 [Rx] Benzonatate [Tessalon] 100 mg PO TID PRN #15 capsule 06/09/18 [Rx] predniSONE [PredniSONE] 10 mg PO DAILY #20 tablet 06/09/18 [Rx] Allergies/Adverse Reactions: Allergy/AdvReac Type Severity Reaction Status Date / Time levofloxacin [From Levaquin] Allergy Redness of Verified 06/08/18 09:49 Skin Date of admission: 06/06/18 20:07 Primary care physician: Melany Shafer CNP Discharging clinician: Lizabeth Neville Anticipated date of discharge: 06/09/18 - Constitutional Vitals: Temp Pulse Resp BP Pulse Ox 97.7 F 90 18 138/70 94 06/09/18 10:39 06/09/18 10:39 06/09/18 10:39 06/09/18 10:39 06/09/18 11:05 General appearance: Present: cooperative, A&O X 3, pleasant, no acute distress Exam: see below - Head Head exam: Present: atraumatic, normocephalic - Eye Eye exam: Present: PERRL, conjuntiva pink, sclera anicteric Pupils: Present: PERRL - Neck Neck exam general surgery: Present: supple, trachea midline. Absent: lymph adenopathy - Respiratory Respiratory exam: Present: CTAB. Absent: accessory muscle use, rales, rhonchi, wheezes - Cardiovascular Cardiovascular exam: Present: RRR, +S1, +S2. Absent: diastolic murmur, gallop, rubs, systolic murmur - GI/Abdominal GI/Abdominal exam: Present: normal bowel sounds, soft, no peritoneal signs. Absent: distended, tenderness - Extremities Exam Extremities exam: Present: warm, radial pulses palpable and symmetrical. Absent: calf tenderness, cyanotic, pedal edema - Neurological Exam Neurological exam: Present: CN II-XII intact, oriented X3, no focal deficits. Absent: pronater drift, facial droop, speech deficit - Skin Skin exam: Present: dry, intact - Patient Status Disposition: Home, Self-Care Condition: Fair Functional capacity at discharge: independent ambulation Overall status at discharge: patient is back to baseline - Discharge Instructions Follow Up With: Melany Shafer CNP [Primary Care Provider] - 06/17/18 1:00 pm - Diet and Activity Activity: increase activity as tolerated Diet: advance to your usual diet
--- NOTE | 2018-06-10 22:07 | Electrocardiograph Report ---
[address] [address] Test Date: 2018-06-06 Pat Name: Liana Moreno Department: [id number] Room: 3B Gender: F Lodging House Keeper: : [id number] Requested By: Myron Gonzalez Order Number: [id number] Reading MD: Anastasia Escobar Measurements Intervals [place] Rate: 63 P: 57 KS: 147 QRS: -44 QRSD: 93 T: 64 QT: 405 QTc: 415 Interpretive Statements Sinus rhythm Left axis deviation Electronically Signed On 06-10-2018 22:05:54 EDT by Anastasia Escobar
== END 2018-06-09 14:35 | disposition home or self-care (01) ==
LOC: 3BNU 17:10 → EMEROOARM 17:10 → 3BNU 20:21
PROVIDERS: ADMIT Pediatrics; ATTEND Pediatrics

== ENCOUNTER 2020-11-20 21:36 | Observation (INO) ==
[2020-11-20] MEDS ORDERED: Ipratropium/Albuterol Neb 3 ML IH ONE (22:41)
[2020-11-20 23:32] LABS: Basophils # 0.1 K/mcL (0.0-0.2); Basophils % 0.6 %; Eosinophils # 1.7 K/mcL (0.0-0.6); Eosinophils % 11.3 %; Hematocrit 42.3 % (35.3-44.9); Immature Granulocytes % 0.2 % (0-4); Lymphocytes # 2.3 K/mcL (0.6-4.6); Lymphocytes % 15.2 %; Mean Corpuscular HGB Conc 30.7 g/dL (31.6-35.5); Mean Corpuscular Hemoglobin 26.5 pg (28.0-33.3); Mean Corpuscular Volume 86.3 fL (83.0-100.0); Mean Platelet Volume 12.2 fL (9.4-12.4); Monocytes # 1.4 K/mcL (0.0-1.3); Monocytes % 9.4 %; Neutrophils # 9.4 K/mcL (1.6-8.9); Platelet Count 161 K/mcL (140-400); Red Cell Distribution Width 14.8 % (11.5-14.5); Segmented Neutrophils % 63.3 %; White Blood Count 14.9 K/mcL (4.3-11.1)
[2020-11-20 23:38] LABS: BUN/Creatinine Ratio 18 (6-26); Blood Urea Nitrogen 24 mg/dL (8-23); Carbon Dioxide 28 mEq/L (23-29); Chloride 105 mEq/L (98-107); Glucose 109 mg/dL (70-105); Osmolality,Calculated 295 (280-300); Potassium 4.1 mEq/L (3.5-5.1); Sodium 140 mEq/L (136-145); eGFR For African Americans 46 (> 60); eGFR For Non-African Americans 38 (> 60)
[2020-11-20 23:39] LABS: Troponin I < 0.03 ng/mL (< 0.04)
[2020-11-21] MEDS ORDERED: 0.9 % Sodium Chloride 1,000 ML IVC ONE (01:33)
[2020-11-21] MEDS ORDERED: Isovue-370 500 ML BOTTLE IVP ONE (01:33)
[2020-11-21] MEDS ORDERED: MethylPREDNISolone 40 MG/ML VIAL IVP ONE (01:34)
[2020-11-21 02:02] LABS: Adenovirus Not Detected (Not Detect); Coronavirus 229E Not Detected (Not Detect); Coronavirus HKU1 Not Detected (Not Detect); Coronavirus NL63 Not Detected (Not Detect); Coronavirus OC43 Not Detected (Not Detect)
[2020-11-21 02:03] LABS: Bordetella Pertussis Not Detected (Not Detect); Chlamydophila pneumoniae Not Detected (Not Detect); Human Metapneumovirus Not Detected (Not Detect); Human Rhinovirus/Enterovirus Not Detected (Not Detect); Influenza A Subtype 2009 H1 Not Detected (Not Detect); Influenza B Not Detected (Not Detect); Mycoplasma pneumoniae Not Detected (Not Detect); Parainfluenza Virus 1 Not Detected (Not Detect); Parainfluenza Virus 2 Not Detected (Not Detect); Parainfluenza Virus 3 Not Detected (Not Detect); Parainfluenza Virus 4 Not Detected (Not Detect); Respiratory Syncytial Virus Not Detected (Not Detect); SARS-CoV-2 Not Detected (Not Detect)
[2020-11-21] MEDS ORDERED: Ipratropium/Albuterol Neb 3 ML IH ONE (03:47)
[2020-11-21] MEDS ORDERED: amLODIPine 5 MG TABLET PO ONE (04:31)
[2020-11-21] MEDS ORDERED: Ondansetron 4 MG/2 ML VIAL IVP PRN (07:35)
[2020-11-21] MEDS ORDERED: Naloxone 0.4 MG/ML INJ IVP PRN (07:35)
[2020-11-21] MEDS ORDERED: *HR* HYDROcodone/Acet 5/325 mg TABLET PO PRN (07:35)
[2020-11-21] MEDS ORDERED: Ipratropium/Albuterol Neb 3 ML ONE (07:46)
[2020-11-21] MEDS: Ipratropium/Albuterol Neb 3 ML IH SCH ×4 (07:48→19:18)
[2020-11-21] MEDS: Doxycycline 100 MG in 0.9 % Sodium Chloride Mini Bag 100 ML IVPB SCH ×2 (08:31→20:01)
[2020-11-21] MEDS: MethylPREDNISolone 40 MG/ML VIAL IVP SCH ×2 (08:31→20:01)
[2020-11-21] MEDS: atenoloL 50 MG TABLET PO SCH (08:31)
[2020-11-21] MEDS: Furosemide 20 MG/2 ML VIAL IVP SCH ×2 (08:31→17:05)
[2020-11-21] MEDS: *HR* Heparin 5,000 UNIT/ML VIAL SQ SCH (17:05)
[2020-11-22] MEDS: Ipratropium/Albuterol Neb 3 ML IH SCH ×4 (00:04→11:10)
[2020-11-22 02:16] LABS: Basophils % 0.1 %; Hemoglobin 13.2 g/dL (11.5-15.4); Red Cell Distribution Width 14.7 % (11.5-14.5); Segmented Neutrophils % 90.7 %
[2020-11-22 02:18] LABS: Hematocrit 41.3 % (35.3-44.9); Immature Granulocytes % 0.7 % (0-4); Immature Platelets 16.2 % (1.1-6.1); Lymphocytes # 0.8 K/mcL (0.6-4.6); Lymphocytes % 6.3 %; Mean Corpuscular Hemoglobin 26.4 pg (28.0-33.3); Mean Corpuscular Volume 82.6 fL (83.0-100.0); Monocytes # 0.3 K/mcL (0.0-1.3); Monocytes % 2.2 %; Platelet Count 179 K/mcL (140-400); White Blood Count 12.3 K/mcL (4.3-11.1)
[2020-11-22 02:19] LABS: Neutrophils # 11.2 K/mcL (1.6-8.9)
[2020-11-22 02:43] LABS: Calcium 8.9 mg/dL (8.6-10.3); Magnesium 2.1 mg/dL (1.6-2.6); Phosphorous 2.8 mg/dL (2.7-4.5); Potassium 4.2 mEq/L (3.5-5.1)
[2020-11-22] MEDS: *HR* Heparin 5,000 UNIT/ML VIAL SQ SCH (05:12)
[2020-11-22 07:15] VITALS: BP 142/75
[2020-11-22] MEDS ORDERED: amLODIPine 5 MG TABLET PO SCH (09:00)
[2020-11-22] MEDS: Furosemide 20 MG/2 ML VIAL IVP SCH (09:04)
[2020-11-22] MEDS: atenoloL 50 MG TABLET PO SCH (09:04)
[2020-11-22] MEDS: Doxycycline 100 MG in 0.9 % Sodium Chloride Mini Bag 100 ML IVPB SCH (09:04)
[2020-11-22] MEDS: MethylPREDNISolone 40 MG/ML VIAL IVP SCH (09:04)
== END 2020-11-22 13:37 | disposition home or self-care (01) ==
LOC: EMEROOARM 21:36 → CDU 21:36 → SUATTDRO 11-21 05:25 → CDU 11-21 05:56 → 3BNU 11-21 15:37
PROVIDERS: ADMIT Family Medicine; ATTEND Nurse Practitioner

== ENCOUNTER 2021-10-12 09:54 | Observation (INO) ==
[2021-10-12 12:30] LABS: Eosinophils # 0.3 K/mcL (0.0-0.6); Hematocrit 40.9 % (35.3-44.9); Hemoglobin 13.4 g/dL (11.5-15.4); Mean Corpuscular HGB Conc 32.8 g/dL (31.6-35.5); Mean Corpuscular Hemoglobin 26.9 pg (28.0-33.3); Mean Platelet Volume 12.6 fL (9.4-12.4); Platelet Count 223 K/mcL (140-400); Red Blood Count 4.99 M/mcL (3.82-4.97); Red Cell Distribution Width 13.2 % (11.5-14.5); White Blood Count 8.7 K/mcL (4.3-11.1)
[2021-10-12 13:03] LABS: Lymphocytes # 1.1 K/mcL (0.6-4.6); Monocytes # 0.5 K/mcL (0.0-1.3); Neutrophils # 6.4 K/mcL (1.6-8.9)
[2021-10-12 13:05] LABS: Albumin 3.3 g/dL (3.5-5.7); Albumin/Globulin Ratio 1.4 (1.1-2.2); Bilirubin,Direct 0.1 mg/dL (0.0-0.2); Bilirubin,Indirect 0.3 mg/dL (0.0-1.0); Bilirubin,Total 0.4 mg/dL (0.3-1.0); Calcium 8.5 mg/dL (8.6-10.3); Globulin 2.4 g/dL (2.4-3.5); Magnesium 1.7 mg/dL (1.6-2.6); Potassium 3.2 mEq/L (3.5-5.1); Total Protein 5.7 g/dL (6.4-8.9)
[2021-10-12] MEDS ORDERED: 0.9 % Sodium Chloride 500 ML IVC ONE ×2 (13:32→15:36)
[2021-10-12 15:19] LABS: Thyroid Stimulating Hormone 1.351 mcIU/mL (0.340-5.600)
[2021-10-12] MEDS ORDERED: Ondansetron 4 MG/2 ML VIAL IVP PRN (16:14)
[2021-10-12] MEDS ORDERED: Naloxone 0.4 MG/ML INJ IVP PRN (16:14)
[2021-10-12] MEDS ORDERED: Albuterol 2.5 MG/3 ML NEBULIZER IH PRN (16:16)
[2021-10-12 16:30] LABS: Influenza A PCR Negative (Negative); Influenza B PCR Negative (Negative); Resp. Syncytial Virus PCR Negative (Negative); SARS-CoV-2 by PCR (In House) Negative (Negative)
[2021-10-12] MEDS: *HR* Heparin 5,000 UNIT/ML VIAL SQ SCH (18:06)
[2021-10-12] MEDS: 0.9 % Sodium Chloride 1,000 ML IVC SCH (18:06)
[2021-10-12] MEDS: Diphenoxylate/Atropine 1 TAB TABLET PO SCH (20:31)
[2021-10-13] MEDS: 0.9 % Sodium Chloride 1,000 ML IVC SCH ×3 (02:24→16:59)
[2021-10-13] MEDS: *HR* Heparin 5,000 UNIT/ML VIAL SQ SCH ×2 (04:59→16:59)
[2021-10-13 05:34] LABS: Basophils # 0.1 K/mcL (0.0-0.2); Hematocrit 38.4 % (35.3-44.9); Mean Corpuscular HGB Conc 33.9 g/dL (31.6-35.5); Mean Corpuscular Hemoglobin 27.5 pg (28.0-33.3); Mean Corpuscular Volume 81.4 fL (83.0-100.0); Platelet Count 235 K/mcL (140-400); Red Blood Count 4.72 M/mcL (3.82-4.97); Red Cell Distribution Width 13.1 % (11.5-14.5); White Blood Count 10.4 K/mcL (4.3-11.1)
[2021-10-13 05:58] LABS: Magnesium 1.8 mg/dL (1.6-2.6); Phosphorous 2.5 mg/dL (2.7-4.5); Potassium 3.9 mEq/L (3.5-5.1)
[2021-10-13 07:44] LABS: Eosinophils # 0.5 K/mcL (0.0-0.6); Lymphocytes # 1.8 K/mcL (0.6-4.6); Monocytes # 0.9 K/mcL (0.0-1.3); Neutrophils # 6.1 K/mcL (1.6-8.9)
[2021-10-13 07:47] LABS: Platelet Estimate Normal (Normal)
[2021-10-13] MEDS: Diphenoxylate/Atropine 1 TAB TABLET PO SCH ×3 (08:22→21:12)
[2021-10-13] MEDS: atenoloL 50 MG TABLET PO SCH (08:22)
[2021-10-13] MEDS: amLODIPine 5 MG TABLET PO SCH (08:22)
[2021-10-13] MEDS: Aspirin Enteric Coated 81 MG Tablet PO SCH (08:22)
[2021-10-13] MEDS: Psyllium 1 PACKET POWD.PACK PO SCH ×3 (10:14→21:12)
[2021-10-13] MEDS: Lactobacillus 1 EACH CAP.SPRINK PO SCH ×2 (10:14→21:11)
[2021-10-13 11:31] LABS: Adenovirus F 40/41 PCR Not detected (Not detect); Astrovirus PCR Not detected (Not detect); C.difficile Toxin A/B Gene PCR Not detected (Not detect); Campylobacter by PCR Not detected (Not detect); Cryptosporidium by PCR Not detected (Not detect); Cyclospora cayetanensis PCR Not detected (Not detect); E. coli O157 by PCR Not detected (Not detect); Entamoeba histolytica PCR Not detected (Not detect); Enteroaggregative E.coli(EAEC) Not detected (Not detect); Enteropathogenic E.coli(EPEC) Not detected (Not detect); Enterotoxigenic E.coli (ETEC) Not detected (Not detect); Giardia lamblia PCR Not detected (Not detect); Norovirus GI/GII PCR Not detected (Not detect); Plesiomonas shigelloides PCR Not detected (Not detect); Rotavirus A PCR Not detected (Not detect); Salmonella PCR Not detected (Not detect); Sapovirus PCR Not detected (Not detect); Shig/EnteroinvasiveE coli EIEC Not detected (Not detect); Shigalike tox-prod E coli STEC Not detected (Not detect); Vibrio PCR Not detected (Not detect); Vibrio cholerae PCR Not detected (Not detect); Yersinia enterocolitica PCR Not detected (Not detect)
[2021-10-14] MEDS: 0.9 % Sodium Chloride 1,000 ML IVC SCH (00:49)
[2021-10-14 01:00] LABS: Hematocrit 40.7 % (35.3-44.9); Mean Corpuscular HGB Conc 31.9 g/dL (31.6-35.5); Mean Corpuscular Hemoglobin 26.4 pg (28.0-33.3); Mean Corpuscular Volume 82.7 fL (83.0-100.0); Mean Platelet Volume 12.3 fL (9.4-12.4); Platelet Count 236 K/mcL (140-400); Red Blood Count 4.92 M/mcL (3.82-4.97); Red Cell Distribution Width 13.4 % (11.5-14.5); White Blood Count 14.5 K/mcL (4.3-11.1)
[2021-10-14 01:21] LABS: Calcium 7.9 mg/dL (8.6-10.3); Magnesium 1.6 mg/dL (1.6-2.6); Phosphorous 2.3 mg/dL (2.7-4.5); Potassium 3.7 mEq/L (3.5-5.1)
[2021-10-14 01:29] LABS: Eosinophils # 1.2 K/mcL (0.0-0.6); Lymphocytes # 1.7 K/mcL (0.6-4.6); Neutrophils # 9.6 K/mcL (1.6-8.9)
[2021-10-14 01:30] LABS: Platelet Estimate Normal (Normal); Reactive Lymphocytes Present (Not Present)
[2021-10-14] MEDS: *HR* Heparin 5,000 UNIT/ML VIAL SQ SCH (05:24)
[2021-10-14 07:22] VITALS: BP 157/68; PULSE 66; TEMP 97.8; O2SAT 96
[2021-10-14] MEDS: Psyllium 1 PACKET POWD.PACK PO SCH (07:57)
[2021-10-14] MEDS: atenoloL 50 MG TABLET PO SCH (07:57)
[2021-10-14] MEDS: Aspirin Enteric Coated 81 MG Tablet PO SCH (07:57)
[2021-10-14] MEDS: amLODIPine 5 MG TABLET PO SCH (07:57)
[2021-10-14] MEDS: Lactobacillus 1 EACH CAP.SPRINK PO SCH (07:57)
[2021-10-14] MEDS: Diphenoxylate/Atropine 1 TAB TABLET PO SCH (07:57)
[2021-10-16] MEDS ORDERED: Ergocalciferol (VIT D2) 50,000 UNIT (1.25MG) CAP PO SCH (09:00)
== END 2021-10-14 11:45 | disposition home or self-care (01) ==
LOC: 2ANU 09:54 → EMEROOARM 09:54 → SUATTDRO 16:27 → 2ANU 16:47
PROVIDERS: ADMIT Family Medicine; ATTEND Student in an Organized Health Care Education/Training Program